=== PATIENT | male | born 1985 | race African-American/Black ===

== ENCOUNTER 2017-09-28 12:37 | Emergency (ER) | payer OTHER ==
[~2017-09-28] VITALS: Ht 175.3 cm; Wt 90.7 kg
[2017-09-28 12:37] VITALS: BP 136/89
== END 2017-09-28 12:58 | disposition home or self-care (01) ==
LOC: ER 12:38
DX: L25.9 Unspecified contact dermatitis, unspecified cause (principal); F12.10 Cannabis abuse, uncomplicated
CPT/HCPCS: 99283; A4606; Z7610

== ENCOUNTER 2017-11-11 09:36 | Emergency (ER) | payer OTHER ==
[~2017-11-11] VITALS: Ht 167.6 cm; Wt 90.7 kg
[2017-11-11 09:46] VITALS: BP 149/91
--- NOTE | 2017-11-11 09:49 | NUR ---
dr prieto at bedside
== END 2017-11-11 10:04 | disposition home or self-care (01) ==
LOC: ER 09:40
DX: R51 Headache (principal); R05 Cough
CPT/HCPCS: A4606; Z7610

== ENCOUNTER 2018-03-12 08:08 | Emergency (ER) | payer OTHER ==
[~2018-03-12] VITALS: Ht 177.8 cm; Wt 90.7 kg
[2018-03-12 08:22] VITALS: BP 110/70
== END 2018-03-12 09:02 | disposition home or self-care (01) ==
LOC: ER 08:09
DX: R21 Rash and other nonspecific skin eruption (principal); F12.10 Cannabis abuse, uncomplicated; Z98.890 Other specified postprocedural states
CPT/HCPCS: A4606; Z7610

== ENCOUNTER 2018-06-10 21:50 | Emergency (ER) | payer OTHER ==
--- NOTE | 2018-06-10 21:58 | NUR ---
CALLED FOR PATIENT WITH NO REPSONSE. WILL F/U
--- NOTE | 2018-06-10 22:00 | NUR ---
PT CALLED. NO RESPONSE FOR 2ND TIME
--- NOTE | 2018-06-10 22:21 | NUR ---
PT CALLED. NO REPSONSE FOR THRID TIME. WILL TAKE OUT SYSTEM
== END 2018-06-10 22:23 | disposition left against medical advice (07) ==
LOC: ER 21:52
DX: Z53.21 Procedure and treatment not carried out due to patient leaving prior to being seen by health care provider (principal)

== ENCOUNTER → 2018-06-11 | Emergency (ER) | payer OTHER ==
[~2018-06-11] VITALS: Ht 177.8 cm; Wt 86.2 kg
[2018-06-11 08:09] VITALS: BP 125/60
== END | disposition home or self-care (01) ==
LOC: ER 08:07
DX: L20.9 Atopic dermatitis, unspecified (principal); L30.1 Dyshidrosis [pompholyx]; Z98.890 Other specified postprocedural states
CPT/HCPCS: 99283; A4606; Z7610

== ENCOUNTER 2020-04-20 09:27 | Emergency (ER) | payer OTHER ==
[~2020-04-20] VITALS: Ht 165.1 cm; Wt 93.9 kg
--- NOTE | 2020-04-20 09:44 | NUR ---
PT IN ER BED 10 AWAITING MD SHELTON.
--- NOTE | 2020-04-20 09:45 | NUR ---
MD AT BEDSIDE SEEING PATIENT
--- NOTE | 2020-04-20 09:54 | NUR ---
AWAITING XRAYS AND DOPPLERS TO BE DONE
--- NOTE | 2020-04-20 09:56 | NUR ---
PILOT BOAT DECKHAND AT BEDSIDE FOR XRAY
--- NOTE | 2020-04-20 10:36 | NUR ---
CONTINUOUS IMPROVEMENT BLACK BELT AT BEDSIDE FOR DOPPLER OF RIGHT LOWER EXTREMITY
[2020-04-20 11:02] LABS: BASOPHILS # (AUTO) 0.1 /CMM (0.0-0.2); BASOPHILS % (AUTO) 0.4 % (0.0-2.0); EOSINOPHILS % (AUTO) 0.4 % (0.0-6.0); HEMATOCRIT 32 % (39-51); HEMOGLOBIN 10.4 g/dL (13.5-17.5); LYMPHOCYTES # (AUTO) 1.7 /CMM (0.8-4.8); LYMPHOCYTES % (AUTO) 13.4 % (20.0-44.0); MEAN CORPUSCULAR HGB CONC 32 g/dl (31.0-36.0); MEAN CORPUSCULAR VOLUME 89 fL (80-96); NEUTROPHILS # (AUTO) 9.6 /CMM (1.8-8.9); NEUTROPHILS % (AUTO) 77.8 % (43.0-81.0); PLATELET COUNT (AUTO) 186 /CMM (150-450); WHITE BLOOD COUNT (AUTO) 12.4 K/uL (4.3-11.0)
[2020-04-20 11:06] LABS: POTASSIUM 3.5 mmol/L (3.5-5.1)
[2020-04-20] MEDS ORDERED: HYDROCODONE/APAP 10/325MG 1 EA TABLET PO ONE (11:30)
[2020-04-20] MEDS ORDERED: HYDROCODONE/APAP 10/325MG 1 EA TABLET ONE (11:31)
--- NOTE | 2020-04-20 11:42 | NUR ---
IV removed. Catheter intact and site benign. Pressure and 4x4 applied to site. No bleeding noted.Patient discharged to home in stable condition. Written and verbal after care instructions given. Patient verbalizes understanding of instruction. ASSISTED TO WAITING ROOM VIA WHEELCHAIR, TO BE PICKED UP BY .
[2020-04-20 11:49] VITALS: BP 132/72
== END 2020-04-20 11:50 | disposition home or self-care (01) ==
LOC: ER 09:32
DX: S70.11XA Contusion of right thigh, initial encounter (principal); T81.89XA Other complications of procedures, not elsewhere classified, initial encounter; Z98.890 Other specified postprocedural states; V49.69XA Unspecified car occupant injured in collision with other motor vehicles in traffic accident, initial encounter; Y93.89 Activity, other specified; Y92.89 Other specified places as the place of occurrence of the external cause; Y99.8 Other external cause status
CPT/HCPCS: 36415; 73502; 73552; 73564-TC; 80048-TC; 85025-TC; 93971-TC

== ENCOUNTER 2020-04-23 12:53 | Emergency (ER) | payer OTHER ==
[~2020-04-23] VITALS: Ht 177.8 cm; Wt 95.3 kg
[2020-04-23 13:08] VITALS: BP 135/77
--- NOTE | 2020-04-23 13:08 | NUR ---
at bedside for eval.
--- NOTE | 2020-04-23 13:40 | NUR ---
Patient discharged to home in stable condition. Written and verbal after care instructions given. Patient verbalizes understanding of instruction.
[2020-04-23] MEDS ORDERED: oxyCODONE/APAP (5/325 MG) 1 UDTAB TABLET ONE (13:50)
[2020-04-23] MEDS ORDERED: oxyCODONE/APAP (5/325 MG) 1 UDTAB TABLET PO ONE ×2 (14:00)
== END 2020-04-23 13:41 | disposition home or self-care (01) ==
LOC: ER 12:53
DX: G89.18 Other acute postprocedural pain (principal); Z98.890 Other specified postprocedural states